=== PATIENT | male | born 1975 | race Asian ===

== ENCOUNTER 2023-01-06 18:10 | Emergency (ER) | payer BC, OTHER ==
[~2023-01-06] VITALS: Ht 160 cm; Wt 63.6 kg
[2023-01-06 20:23] LABS: Basophils # (auto) 0 10 ^3/uL (0-0.2); Basophils % (auto) 0.1 % (0.0-2.0); Eosinophils # (auto) 0 10 ^3/uL (0-0.8); Eosinophils % (auto) 0.2 % (0.0-7.0); Hematocrit 43.9 % (41.0-53.0); Hemoglobin 14.9 g/dL (13.5-17.5); Lymphocytes # (auto) 0.3 10 ^3/uL (0.4-5.4); Lymphocytes % (auto) 4.4 % (10.0-50.0); Mean Corpuscular Hemoglobin 30.2 pg (28.0-32.0); Mean Corpuscular Hgb Conc. 33.9 g/dL (32.0-36.0); Mean Corpuscular Volume 88.9 fL (80.0-100.0); Monocytes # (auto) 0.3 10 ^3/uL (0-1.3); Monocytes % (auto) 4.1 % (0.0-12.0); Neutrophils # (auto) 6.9 10 ^3/uL (1.6-8.6); Neutrophils % (auto) 91.2 % (37.0-80.0); Red Blood Cells 4.94 10^6/uL (4.5-5.90); White Blood Cell 7.5 10^3/uL (4.4-10.8)
[2023-01-06 20:56] LABS: Lactic Acid w/Reflex 2.7 mmol/L (0.4-2.0)
[2023-01-06 21:02] LABS: Albumin 3.9 g/dL (3.4-5.0); BUN/Creatinine Ratio 9.6 (10.0-20.0); Calcium 8.4 mg/dL (8.5-10.1); Potassium 3.7 mmol/L (3.5-5.1)
[2023-01-06 21:04] LABS: Bilirubin, Total 0.5 mg/dL (0.2-1.0); Total Protein 7.7 g/dL (6.4-8.2)
[2023-01-07 02:01] LABS: Urine Bacteria FEW /hpf (None Seen); Urine Blood 3+ /uL (Negative); Urine Mucus FEW (None Seen); Urine WBC 14 /hpf (0 - 3)
[2023-01-07] MEDS ORDERED: levoFLOXacin 500 MG TAB PO ONE (05:30)
[2023-01-07] MEDS ORDERED: LEVO500T31 PO (05:31)
[2023-01-07 05:55] VITALS: BP 129/89
== END 2023-01-07 06:21 | disposition home or self-care (01) ==
LOC: ER 18:15
DX: N39.0 Urinary tract infection, site not specified (principal); N20.1 Calculus of ureter; J45.909 Unspecified asthma, uncomplicated; Z93.6 Other artificial openings of urinary tract status; Z87.442 Personal history of urinary calculi
CPT/HCPCS: 36415; 71045; 74176; 80053; 81001; 83605; 85025; 87040

== ENCOUNTER 2024-01-15 13:14 | Inpatient (IN) | payer BC ==
[~2024-01-15] VITALS: Ht 157.5 cm; Wt 70.1 kg
[~2024-01-15 13:14] MED LIST: LEVO500T31 PO
[2024-01-15] MEDS: ONDANSETRON HCL 4 MG/2 ML VIAL IV ONE (14:58)
[2024-01-15 15:05] LABS: Basophils # (auto) 0.1 10 ^3/uL (0-0.2); Basophils % (auto) 0.4 % (0.0-2.0); Eosinophils # (auto) 0 10 ^3/uL (0-0.8); Eosinophils % (auto) 0.3 % (0.0-7.0); Hematocrit 46.5 % (41.0-53.0); Hemoglobin 15.6 g/dL (13.5-17.5); Lymphocytes # (auto) 0.6 10 ^3/uL (0.4-5.4); Lymphocytes % (auto) 4.5 % (10.0-50.0); Mean Corpuscular Hemoglobin 29.4 pg (28.0-32.0); Mean Corpuscular Hgb Conc. 33.6 g/dL (32.0-36.0); Mean Corpuscular Volume 87.7 fL (80.0-100.0); Monocytes # (auto) 0.7 10 ^3/uL (0-1.3); Monocytes % (auto) 5.4 % (0.0-12.0); Neutrophils # (auto) 11.8 10 ^3/uL (1.6-8.6); Neutrophils % (auto) 89.4 % (37.0-80.0); Red Blood Cells 5.31 10^6/uL (4.5-5.90); Red Cell Distribution Width 13.5 % (11.8-14.3); White Blood Cell 13.2 10^3/uL (4.4-10.8)
[2024-01-15] MEDS: SODIUM CHLORIDE 0.9% 1,000 ML IVB ONE (15:06)
[2024-01-15] MEDS: KETOROLAC TROMETH 30 MG/ML 1ML VIAL IV ONE (15:06)
[2024-01-15 15:16] LABS: Anion Gap 3 (5-15); Carbon Dioxide 32 mmol/L (20-30); Chloride 105 mmol/L (98-107); Potassium 4.8 mmol/L (3.5-5.1); Sodium 140 mmol/L (136-145)
[2024-01-15 15:17] LABS: Calcium 10.1 mg/dL (8.7-10.4)
[2024-01-15 15:22] LABS: BUN/Creatinine Ratio 10.7 (10.0-20.0); Blood Urea Nitrogen 17 mg/dL (9-23); Glucose 129 mg/dL (74-106)
[2024-01-15 15:33] LABS: Urine Bacteria None Seen /hpf (None Seen)
[2024-01-15 15:41] LABS: Urine Blood Negative /uL (Negative); Urine Clarity Clear (Clear); Urine Color Light-Yellow (Yellow); Urine Protein, UAD TRACE (Negative); Urine Specific Gravity 1.021 (1.001-1.035); Urine Urobilinogen Normal (Negative); Urine WBC <1 /hpf (0 - 3); Urine pH 5.5 (5.0-9.0)
[2024-01-15] MEDS: cefTRIAXone 1GM/50ML D5W 50 ML IV ONE (16:17)
[2024-01-15] MEDS ORDERED: ONDANSETRON HCL 4 MG/2 ML VIAL IV PRN (17:30)
[2024-01-15] MEDS ORDERED: MORPHINE SULFATE INJ 2 MG/ml SYRG IV PRN (17:30)
[2024-01-15] MEDS ORDERED: ACETAMINOPHEN 325 MG TAB PO PRN (17:30)
[2024-01-15] MEDS: TAMSULOSIN HYDROCHLORIDE 0.4 MG CAP PO SCH (18:10)
[2024-01-15] MEDS: HYDROcodone-ACET 5/325MG TAB PO PRN (19:02)
[2024-01-15] MEDS: SODIUM CHLORIDE 0.9% 1,000 ML IV SCH (19:08)
[2024-01-16] VITALS (8 sets, daily range): BP systolic 110–139; BP diastolic 70–99; PULSE 73–86; RESP 13–18; TEMP 97.9–98.5; O2SAT 96–100
[2024-01-16] MEDS ORDERED: DILT60TA PO (05:12)
[2024-01-16 06:27] LABS: Basophils # (auto) 0 10 ^3/uL (0-0.2); Basophils % (auto) 0.4 % (0.0-2.0); Eosinophils # (auto) 0.2 10 ^3/uL (0-0.8); Eosinophils % (auto) 2.6 % (0.0-7.0); Hematocrit 39.3 % (41.0-53.0); Hemoglobin 13.4 g/dL (13.5-17.5); Lymphocytes % (auto) 13.7 % (10.0-50.0); Mean Corpuscular Hemoglobin 30.1 pg (28.0-32.0); Mean Corpuscular Hgb Conc. 34.1 g/dL (32.0-36.0); Mean Corpuscular Volume 88.3 fL (80.0-100.0); Monocytes # (auto) 0.6 10 ^3/uL (0-1.3); Monocytes % (auto) 8.6 % (0.0-12.0); Neutrophils # (auto) 5.3 10 ^3/uL (1.6-8.6); Neutrophils % (auto) 74.7 % (37.0-80.0); Red Blood Cells 4.45 10^6/uL (4.5-5.90); Red Cell Distribution Width 13.6 % (11.8-14.3)
[2024-01-16 06:50] LABS: Alanine Aminotransferase 23 U/L (7-40); Albumin 3.9 g/dL (3.2-4.8); Alkaline Phosphatase 49 U/L (46-116); Anion Gap 4 (5-15); Aspartate Aminotransferase 12 U/L (13-40); BUN/Creatinine Ratio 13.7 (10.0-20.0); Blood Urea Nitrogen 17 mg/dL (9-23); Carbon Dioxide 28 mmol/L (20-30); Chloride 108 mmol/L (98-107); Glucose 121 mg/dL (74-106); Sodium 140 mmol/L (136-145)
[2024-01-16 06:51] LABS: Bilirubin, Total 0.5 mg/dL (0.2-1.0); Total Protein 6.5 g/dL (5.7-8.2)
[2024-01-16] MEDS: cefTRIAXone 1GM/50ML D5W 50 ML IV SCH (08:59)
[2024-01-16] MEDS: MANNITOL FTV 25% 12.5 GM/50 ML 50 ML IV ONE (18:50)
[2024-01-17] VITALS (8 sets, daily range): BP systolic 128–146; BP diastolic 81–93; PULSE 79–85; RESP 16–19; TEMP 97.1–98.2; O2SAT 95–99
[2024-01-18 01:08] VITALS: BP 131/92; PULSE 79; RESP 18; TEMP 97.8; O2SAT 94
[2024-01-18] MEDS: ACETAMINOPHEN 325 MG TAB PO PRN (04:08)
[2024-01-18 05:14] VITALS: BP 132/92; PULSE 86; RESP 18; TEMP 98; O2SAT 95
[2024-01-18 06:42] LABS: Anion Gap 4 (5-15); Carbon Dioxide 28 mmol/L (20-30); Chloride 108 mmol/L (98-107); Potassium 4.2 mmol/L (3.5-5.1); Sodium 140 mmol/L (136-145)
[2024-01-18 06:43] LABS: Calcium 8.9 mg/dL (8.5-10.1)
[2024-01-18 06:48] LABS: BUN/Creatinine Ratio 10.5 (10.0-20.0); Blood Urea Nitrogen 11 mg/dL (9-23); Glucose 97 mg/dL (74-106)
[2024-01-18 08:30] VITALS: PULSE 75; RESP 14; O2SAT 96
[2024-01-18 08:53] VITALS: BP 131/88; PULSE 71; RESP 17; TEMP 97.9; O2SAT 96
[2024-01-18] MEDS: dilTIAZem 120MG ER CAP PO SCH (11:21)
[2024-01-18 11:35] LABS: INR 0.99 (0.9-1.15); Partial Thromboplastin Time 27.2 SEC (24.5-34.5); Prothrombin Time 10.5 sec (9.3-11.8)
[2024-01-18 13:33] VITALS: BP 144/98; PULSE 82; RESP 16; TEMP 98.4; O2SAT 97
== END 2024-01-18 15:30 | disposition home or self-care (01) | DRG 694 ==
LOC: ER 13:16 → OVERFLOW 17:34 → WEST WING 01-16 03:40
PROVIDERS: ADMIT Registered Nurse; ATTEND Internal Medicine Geriatric Medicine
DX: N13.2 Hydronephrosis with renal and ureteral calculous obstruction (principal); N17.9 Acute kidney failure, unspecified; E66.9 Obesity, unspecified; I10 Essential (primary) hypertension; J45.909 Unspecified asthma, uncomplicated; Z87.442 Personal history of urinary calculi; Z68.28 Body mass index [BMI] 28.0-28.9, adult; Z85.3 Personal history of malignant neoplasm of breast; Z82.49 Family history of ischemic heart disease and other diseases of the circulatory system
CPT/HCPCS: 36415; 74176; 76775; 80048; 80053; 81001; 85025; 85610; 85730; 87040; 87086; 96365; 96375; G0378; J1885